=== PATIENT | female | born 1965 | race Hispanic/Latino ===

== ENCOUNTER 2018-03-14 12:16 | Outpatient (CLI) | payer OTHER ==
--- NOTE | 2018-03-14 13:25 | RAD ---
PA AND LATERAL CHEST: History: Positive TB test. FINDINGS: The heart size is normal. The lungs are well expanded without lobar consolidation, pneumothoraces, or pleural effusions. There are degenerative changes in the spine. IMPRESSION: No radiographic evidence of active tuberculosis. POS: C
== END 2018-03-14 12:17 | disposition home or self-care (01) ==
LOC: MADRAD 12:16
PROVIDERS: ATTEND Nurse Practitioner Family
DX: R76.11 Nonspecific reaction to tuberculin skin test without active tuberculosis (principal)
CPT/HCPCS: 71046